=== PATIENT | female | born 1945 | race Caucasian/White ===

== ENCOUNTER → 2017-02-27 | Day surgery (SDC) | payer OTHER ==
[2017-02-06 11:23] VITALS: BMI 19.0
--- NOTE | 2017-02-06 11:57 | PAT Medication Instructions ---
Service Date February 06, 2017. Current Home Medication List Albuterol (Ventolin), 2 PUFFS INH QID PRN for SOB/Wheezing Citalopram Hydrobromide (Celexa), 20 MG PO QAM Oxycodone/Acetaminophen 5MG/325MG (Percocet 5MG/325MG), 1-2 TABLETS PO Q4-6HR PRN Medication Instructions For Your Scheduled Surgery - Take the following medications the morning of surgery with a sip of water: Albuterol (Ventolin), 2 PUFFS INH QID PRN for SOB/Wheezing (use if needed/ bring with you to hospital on day of surgery) Citalopram Hydrobromide (Celexa), 20 MG PO QAM Oxycodone/Acetaminophen 5MG/325MG (Percocet 5MG/325MG), 1-2 TABLETS PO Q4- 6HR PRN (can take up to four hours prior to surgery on day of surgery if needed) - Take the following medications as scheduled the night before surgery: Albuterol (Ventolin), 2 PUFFS INH QID PRN for SOB/Wheezing Oxycodone/Acetaminophen 5MG/325MG (Percocet 5MG/325MG), 1-2 TABLETS PO Q4- 6HR PRN If you have any questions please call us at [phone] or [phone] ( Sydnie) or [phone]
[2017-02-06 12:40] LABS: URINE APPEARANCE CLEAR (CLEAR); URINE BILIRUBIN NEG (NEG); URINE COLOR YELLOW; URINE NITRITE NEG (NEG); URINE SPECIFIC GRAVITY 1.011 (1.000-1.030); UROBILINOGEN NEG (NEG)
[2017-02-06 12:41] LABS: BASO % 0.5 %; BASO ABS # 0.03 K/uL (0-0.2); COMPLETE YES; EOS % 1.6 %; HEMATOCRIT 43.7 % (37-47); IG% 0.2 %; LYMPH % 21.5 %; MEAN CELL VOLUME 94.2 fL (80-100); MEAN CORPUSCULAR HEMOGLOBIN 31.5 pg (25-34); MEAN CORPUSCULAR HGB CONC 33.4 g/dl (32-36); MEAN PLATELET VOLUME 10.8 fL (7.4-10.4); NEUT % 69.2 %; PLATELET COUNT 199 K/uL (130-400); RED BLOOD COUNT 4.64 M/uL (4.2-5.4); WHITE BLOOD COUNT 5.58 K/uL (4.8-10.8)
[2017-02-06 12:46] LABS: MANUAL MICROSCOPIC REQUIRED? NO; REVIEW REQ? NO
[2017-02-06 13:38] LABS: BUN/CREATININE RATIO 19.9 (10-20); CALCIUM 9.6 mg/dl (8.5-10.1); CREATININE 0.7 mg/dl (0.60-1.20); POTASSIUM 4.3 mmol/L (3.5-5.1)
--- NOTE | 2017-02-14 14:00 | History and Physical ---
History & Physical Date of Service February 14, 2017. History & Physical Plan of care discussed with Dr. Baker CHIEF COMPLAINT: Chronic intractable lower extremity neuropathic pain HISTORY OF PRESENT ILLNESS: Ms. Guillen is a 71-year-old white female who is well known to the [facility] with a history of chronic bilateral lower extremity neuropathic pain which has required implantation of intrathecal pump and catheter delivery system. The intrathecal pump was implanted by Dr. Baker in 2010 which has provided adequate pain control with the current intrathecal infusion rate. Her pain will range from a 1-6/10. Neuropathic pain in the legs has been well controlled with the Clonidine dosing. She has no new neurologic complaints and has no further constitutional complaints at today's visit. Patient continues to use spinal cord stimulator with moderate relief of neuropathic pain. She denies any constitutional complaints, neurological symptoms, bowel/bladder incontinence, or leg weakness. PAST MEDICAL HISTORY: 1. Dyslipidemia 2. Osteoarthritis 3. History of urethral cancer with chemotherapy and radiation 1990 4. COPD PAST SURGICAL HISTORY: 1. Partial hysterectomy 2. Multiple left leg surgeries 3. Left wrist ORIF 4. Implantation of intrathecal pump and catheter delivery system 5. Implantation of spinal cord stimulator 2003 with battery replacement in 2010 and 2013 SOCIAL HISTORY: Patient is retired and living with her . She smokes one pack per day 59 years. Occasional alcohol consumption. She denies any illicit substance abuse. ALLERGIES: Adhesives, Bactrim MEDICATIONS: 1. Albuterol inhaler 2 puffs every 6 hours as needed 2. Citalopram 20 mg daily REVIEW OF SYSTEMS: Denies any constitutional, cardiac, pulmonary, neurological, GI, , extremity, endocrine, neuro, ENT, dermatological, or musculoskeletal complaints other than stated in HPI PHYSICAL EXAMINATION: VITAL SIGNS: Per admission GENERAL: This is a 71-year-old white female that has been and frail appearing. Speech and cognition is intact. Mood and affect is appropriate. She does not appear to be in any acute distress. HEAD: Normocephalic; atraumatic. EYES: Pupils are round, equal, and reactive to light; EOM intact. ENT: No external ear discharge or lesions. No rhinorrhea or epistaxis. No mucosal lesions. NECK: Full ROM; trachea is midline; no TTP; no cervical lymphadenopathy. PULM: Clear to auscultation. No wheezes, rales, or rhonchi. CHEST: Regular chest respiration and excursion. ABDOMEN: Active bowel sounds throughout; non-tender to palpation. Intrathecal pump located in the right lower quadrant and spinal cord stimulator located in the left lower quadrant. EXTREMITIES: 5/5 strength of the bilateral lower extremities. No allodynia, hyperpathia. There are scattered dysesthesias of the lower extremities. BACK: Well healed surgical incision of the thoracolumbar region. No midline or facet tenderness. . No SI joint tenderness. No muscle spasm noted. NEURO: CN II-XII grossly intact with no focal deficits noted. AAO x 3. SKIN: No lesions, erythema, or rashes noted. ASSESSMENT: Chronic intractable lower extremity neuropathic pain TREATMENT: Patient reports adequate pain control of the bilateral lower extremities with the use of the intrathecal pump and catheter delivery system as well at the spinal cord stimulator. The MARIO of the intrathecal pump is at 6 months so it is recommended that the pump be replaced. Risks and benefits were reviewed with the patient. Procedure was explained and she would like to proceed with the pump replacement. She is scheduled for the procedure on .
[~2017-02-27] VITALS: Ht 162.6 cm; Wt 51.0 kg
[~2017-02-27] MED LIST: ALBUAER2 INH; ATROPINE SULFATE 0.1 MG/ML 5ML SYR IV PRN; BACITRACIN 50000 UNIT VIAL ONE; BUPIVACAINE/EPINEPHRINE 0.25% 1:200,000 30 ML VIAL ONE; CEFAZOLIN 2000 MG/60 ML D5W 50 ML IV SCH; CITA10TA8 PO; DEXAMETHASONE SOD INJ 4 MG/ML VIAL ONE; EpHEDrine SULFATE INJ 50 MG/ML AMP ONE; FENTANYL CITRATE INJ 50 MCG/1 ML 2 ML VIAL IV PRN; FENTANYL CITRATE INJ 50 MCG/1 ML 2 ML VIAL ONE; HYDR-5688 PO; LACTATED RINGER'S 1000ML 1,000 ML IV SCH; LIDOCAINE HCL 2% 2 ML VIAL (20MG/ML) ONE; MIDAZOLAM HCL 1 MG/ML 2ML VIAL ONE; NEOMYCIN/POLYMYX/BACITR OINT 15 GM TUBE ONE; ONDANSETRON INJ 2 MG/ML 2 ML VIAL IV PRN; ONDANSETRON INJ 2 MG/ML 2 ML VIAL ONE; OXYC-57 PO; PHENYLEPHRINE 100MCG/ML 5ML SYR ONE; PROPOFOL IV EMULSION 10 MG/ML 20 ML VIAL IV ONE
[2017-02-27 12:48] VITALS: PULSE 77; TEMP 36.7; O2SAT 97; Ht 162.6 cm; Wt 51.0 kg
--- NOTE | 2017-02-27 14:12 | History & Physical Bridge Note ---
H&P Re-Evaluation Bridge Note: I have examined the patient, reviewed the History & Physical and in the interval since the performance of the History & Physical I have noted the following changes of clinical significance: No changes noted
--- NOTE | 2017-02-27 15:29 | Discharge Instructions ---
Discharge Instructions Date of Service Feb 27, 2017. Visit Reason for Visit: End-Of-Life Intrathecal Drug Administration System Discharge Discharge Diagnosis / Problem: Intrathecal pump replacement Discharge Goals Goal(s): Increase independence Activity Recommendations Activity Recommendations: no repetitive bending, no repetitive twists, no showers for 3 days Lifting Limitations: no more than 10 pounds Shower/Bathe: may shower/bathe in 3 days Anesthesia . Post Anesthesia Instructions: If you have had General Anesthesia or IV Sedation: * Do not drive today. * Resume driving when surgeon permits. * Do not make important decisions or sign legal documents today. * Call surgeon for: * Temperature elevations greater than 101 degrees F. * Uncontrollable pain. * Excessive bleeding. * Persistent nausea and vomiting. * Medication intolerance (nausea, vomiting or rash). * For nausea and vomiting use only clear liquids such as: tea, soda, bouillon until nausea subsides, then gradually increase diet as tolerated. * If you have any concerns or questions, call your surgeon's office. If physician is unavailable and it is an emergency, call 911 or go to the nearest emergency room. . Instructions Instructions / Follow-Up . * Change dressings daily. Apply sterile dry gauze. * Call [facility] [phone] or go to the nearest emergency room if he experience high fevers, new back pain, new neurological symptoms such as numbness or weakness in the lower extremity or new bowel bladder incontinence. Also of call if he experience a headache that is positional. * Wear abdominal binder. * No showers for 3 days. * Resume normal activity. No repetitive bending, twisting or reaching overhead for 2 weeks. Do not lift more than 5 pounds for 2 weeks. . Follow-Up Follow-Up: 1 week in office for wound check Diet Recommendations Home Diet: no limitations Procedures Procedures Performed: Replacement of Intrathecal Drug Administration Pain Pump Pending Studies Studies pending at discharge: no Medical Emergencies . Who to Call and When: Medical Emergencies: If at any time you feel your situation is an emergency, please call 911 immediately. . Non-Emergent Contact Non-Emergency issues call your: Pain Management provider Call Non-Emergent contact if: temperature is above 101.5, your pain is not controlled, your pain is worsening, your pain is unusual for you, your pain is concerning you, wound has increased drainage, wound has increased redness . . "Provider Documentation" section prepared by Shilpa Aquino. .
--- NOTE | 2017-02-27 15:33 | [facility] Operative Report ---
Operative Report Operative Date Feb 27, 2017. Pre-Operative Diagnosis End of life intrathecal pain pump Post-Operative Diagnosis Same Procedure(s) Performed Replacement of intrathecal pump Surgeon Dr. Aime Geronimo Build Technician Surgeon(s) Shilpa Aquino PA-c Estimated Blood Loss 10 ml Findings See below Specimens A: Explanted pain pump Drains None Anesthesia General LMA Complication(s) None Disposition Recovery Room / PACU Description of Procedure INTRATHECAL PUMP REPLACEMENT PROCEDURE PERFORMED: Intrathecal pump replacement PREOPERATIVE DIAGNOSIS: End of life intrathecal pump POSTOPERATIVE DIAGNOSIS: Same. COMPLICATIONS: None. SURGEON: Dr. Kenn Baker. ANESTHESIA: General/LMA. MATERIAL FORWARDED TO THE LAB: Explanted pump. EBL: 5 ml IMPLANTED PUMP SIZE: 40 mL. MEDICATIONS PLACED IN THE PUMP: Morphine 10 mg/ml and Clonidine 100 mcg/ml INDICATIONS: The patient had an end of life pump with less than 1 month prior to system failure, thus requiring replacement. The patient was explained the risks, benefits, alternatives of the procedure and agreed to proceed as above. Informed consent was obtained and witnessed. A time out was performed after the patient was brought into the Operating Room. Antibiotics were given. The patient was then induced with general anesthesia without complications and was placed in the supine. The skin was prepped with duraprep and betadiene and draped in sterile fashion. The existing pump was identified and using a scalpel , electro cautery, and blunt dissection, the existing pump was exposed. The four retaining sutures were removed and the old pump was explanted. The catheter was disconnected from the old pump and free flowing CSF was noted. The new pump was opened and prepared according to [employer] standards and was filled with 40 mL of new medication of same type and concentration. The pump catheter was secured to the new pump and secured. The catheter access port was accessed and revealed free flowing CSF. Next, the pocket was irrigated with sterile normal saline with bacitracin. Hemostasis was checked. The new pump was placed into the pocket in the 12 O'clock position. The intrathecal pump was anchored in the pocket with 4-0 Prolene sutures. Both wounds were irrigated with bacitracin-containing normal saline. Both wounds were closed in similar fashion using continuous 0 V lock suture for deeper layer and running 3-0 V lock suture for subcuticular layer. Prineo to the skin. 4 x 4 gauze and pressure dressing was applied to both sites. Abdominal binder was placed. At the conclusion of the procedure, the pump was re-interrogated and reprogrammed to deliver morphine 1.399 and clonidine 13.99 mcg per day. The patient was allowed to emerge from general anesthesia and transported to the recovery room in stable condition uneventfully. The patient will follow up at [facility] pain clinic within 7 days for a wound check and then plan to have the gwen removed at day 14. I attest to the content of the Intraoperative Record and any orders documented therein. Any exceptions are noted below.
--- NOTE | 2017-02-27 15:59 | Anesthesiology Progress Note ---
Anesthesia Post Op Note Date & Time Feb 27, 2017 at 15:59 Vital Signs Pain Intensity: 3 Vital Signs Past 12 Hours Date Time Temp Pulse Resp B/P (MAP) Pulse Ox O2 Delivery O2 Flow Rate FiO2 02/27/17 15:45 81 16 116/76 98 Mask 10 02/27/17 15:35 37.4 79 16 152/74 100 Mask 10 02/27/17 12:48 36.7 77 16 97 Room Air Notes Mental Status: alert / awake / arousable, participated in evaluation Pt Amnestic to Procedure: Yes Nausea / Vomiting: adequately controlled Pain: adequately controlled Airway Patency, RR, SpO2: stable & adequate BP & HR: stable & adequate Hydration State: stable & adequate Anesthetic Complications: no major complications apparent
[2017-02-27 16:15] VITALS: BP 125/63; PULSE 77; TEMP 36.4; O2SAT 91
[2017-02-27 16:45] VITALS: BP 120/64; PULSE 77; O2SAT 93
[2017-02-27 17:15] VITALS: BP 120/64; PULSE 82; TEMP 36.4; O2SAT 94
== END | disposition home or self-care (01) ==
LOC: C.ACU 12:08
PROVIDERS: ATTEND Anesthesiology
DX: Z46.2 Encounter for fitting and adjustment of other devices related to nervous system and special senses (principal); G89.29 Other chronic pain; G57.93 Unspecified mononeuropathy of bilateral lower limbs; J44.9 Chronic obstructive pulmonary disease, unspecified; E78.5 Hyperlipidemia, unspecified; M19.90 Unspecified osteoarthritis, unspecified site; Z85.54 Personal history of malignant neoplasm of ureter; Z90.711 Acquired absence of uterus with remaining cervical stump; Z98.890 Other specified postprocedural states; Z88.1 Allergy status to other antibiotic agents

== ENCOUNTER → 2017-03-06 | Outpatient (CLI) | payer OTHER ==
[~2017-03-06] MED LIST changes: -ATROPINE SULFATE 0.1 MG/ML 5ML SYR IV PRN; -BACITRACIN 50000 UNIT VIAL ONE; -BUPIVACAINE/EPINEPHRINE 0.25% 1:200,000 30 ML VIAL ONE; -CEFAZOLIN 2000 MG/60 ML D5W 50 ML IV SCH; -DEXAMETHASONE SOD INJ 4 MG/ML VIAL ONE; -EpHEDrine SULFATE INJ 50 MG/ML AMP ONE; -FENTANYL CITRATE INJ 50 MCG/1 ML 2 ML VIAL IV PRN; -FENTANYL CITRATE INJ 50 MCG/1 ML 2 ML VIAL ONE; -LACTATED RINGER'S 1000ML 1,000 ML IV SCH; -LIDOCAINE HCL 2% 2 ML VIAL (20MG/ML) ONE; -MIDAZOLAM HCL 1 MG/ML 2ML VIAL ONE; -NEOMYCIN/POLYMYX/BACITR OINT 15 GM TUBE ONE; -ONDANSETRON INJ 2 MG/ML 2 ML VIAL IV PRN; -ONDANSETRON INJ 2 MG/ML 2 ML VIAL ONE; -PHENYLEPHRINE 100MCG/ML 5ML SYR ONE; -PROPOFOL IV EMULSION 10 MG/ML 20 ML VIAL IV ONE
--- NOTE | 2017-03-06 12:02 | DIAGNOSTIC IMAGING REPORT ---
LEFT HUMERUS MIN 2 VIEWS ROUTINE CLINICAL HISTORY: Left arm pain status post fall. COMPARISON: None FINDINGS: No acute fracture of the left humerus is identified. Alignment of the left acromioclavicular and glenohumeral joints appears anatomic. There is mild to moderate AC joint arthrosis. IMPRESSION: No acute fracture of the left humerus. Electronically signed by: Laz Ledesma M.D. 03/06/2017 12:00 PM Dictated Date/Time: 03/06/2017 11:59 AM
== END | disposition home or self-care (01) ==
LOC: C.RADBC 11:18
PROVIDERS: ATTEND Physician Assistant
DX: M79.632 Pain in left forearm (principal)

== ENCOUNTER → 2017-08-14 | Outpatient (CLI) | payer OTHER ==
[~2017-08-14] MED LIST changes: -OXYC-57 PO
--- NOTE | 2017-08-14 12:49 | DIAGNOSTIC IMAGING REPORT ---
THORACOLUMBAR SPINE 2 VIEWS CLINICAL HISTORY: BACK PAIN COMPARISON STUDY: 01/20/2014 FINDINGS: There is a thoracolumbar scoliosis. No acute fractures or subluxations are visualized. There are multilevel degenerative changes. There is an intrathecal pain pump, and spinal stimulator. There is discontinuity of the intrathecal pain pump tubing. IMPRESSION: 1. Thoracolumbar scoliosis 2. Multilevel degenerative change 3. No change in the position of the spinal stimulator 4. Intrathecal pain pump. There is again evidence for discontinuity of the pump tubing. Electronically signed by: Farooq Bautista M.D. 08/14/2017 12:48 PM Dictated Date/Time: 08/14/2017 12:45 PM
== END | disposition home or self-care (01) ==
LOC: C.RADBC 12:13
PROVIDERS: ATTEND Physician Assistant Medical
DX: M54.5 Low back pain (principal)

== ENCOUNTER 2017-11-30 12:32 | Emergency (ER) | payer OTHER ==
[~2017-11-30] VITALS: Ht 165.1 cm; Wt 49.1 kg
[2017-11-30 12:42] VITALS: TEMP 36.6; Ht 165.1 cm; Wt 49.1 kg
[2017-11-30 13:40] LABS: BASO % 0.9 %; BASO ABS # 0.05 K/uL (0-0.2); EOS % 2.2 %; EOS ABS # 0.12 K/uL (0-0.5); HEMATOCRIT 44.1 % (37-47); HEMOGLOBIN 14.8 g/dL (12.0-16.0); IG# 0.01 K/uL (0.00-0.02); LYMPH % 16.7 %; LYMPH ABS # 0.91 K/uL (1.2-3.4); MEAN CELL VOLUME 92.5 fL (80-100); MEAN CORPUSCULAR HGB CONC 33.6 g/dl (32-36); MEAN PLATELET VOLUME 11.2 fL (7.4-10.4); MONO % 8.6 %; MONO ABS # 0.47 K/uL (0.11-0.59); NEUT % 71.4 %; PLATELET COUNT 193 K/uL (130-400); RED CELL DISTRIBUTION WIDTH CV 13.4 % (11.5-14.5); RED CELL DISTRIBUTION WIDTH SD 45.6 fL (36.4-46.3); WHITE BLOOD COUNT 5.46 K/uL (4.8-10.8)
[2017-11-30 13:56] LABS: ALBUMIN 4.2 gm/dl (3.4-5.0); CALCIUM 9.8 mg/dl (8.5-10.1); CREATININE 0.7 mg/dl (0.60-1.20); POTASSIUM 4.1 mmol/L (3.5-5.1)
[2017-11-30 13:59] LABS: TOTAL PROTEIN 7.6 gm/dl (6.4-8.2)
[2017-11-30] MEDS ORDERED: VNTHFA/IN INH (14:08)
--- NOTE | 2017-11-30 14:09 | DIAGNOSTIC IMAGING REPORT ---
PA CHEST WITH ABDOMINAL SERIES CLINICAL HISTORY: Generalized abdominal pain. FINDINGS: A PA chest radiograph is compared to study dated 03/25/2014. Examination is degraded by patient rotation. The heart is top normal for projection. There is atherosclerotic calcification of the thoracic aorta. Emphysema is suspected. There is chronic interstitial thickening. No airspace consolidation or pleural effusion is identified. No pneumothorax is seen. The skeletal structures are osteopenic. There are healed right-sided rib fractures. Supine and erect abdominal radiographs are correlated with abdominal CT dated 03/25/2014. There is a nonobstructed abdominal bowel gas pattern. No evidence of intraperitoneal free air is seen. There are no abnormal abdominal calcifications. The lumbosacral spine and bony pelvis appear intact. Electronic devices project over the mid abdomen bilaterally. A pain pump catheter projects over the upper lumbar region. Intrathecal leads project over the lower thoracic spine. The pain pump catheter appears fractured at the level of L3. There is also likely a fractured lead from the neurostimulator device. IMPRESSION: 1. Emphysema with no acute cardiopulmonary abnormality. 2. Nonobstructed abdominal bowel gas pattern. 3. Neurostimulator and pain pump catheter devices are in place. An electronic leads as well as the pain pump catheter appear fractured. Follow-up with the patient's pain management physician is recommended. Electronically signed by: Femi Mccollum M.D. 11/30/2017 2:08 PM Dictated Date/Time: 11/30/2017 2:00 PM
--- NOTE | 2017-11-30 14:26 | EMERGENCY ROOM VISIT NOTE ---
ED Visit Note First contact with patient: 13:01 I have seen and examined this patient with Isa Singh and generally agree with the treatment plan as discussed. Problem List Medical Problems: (1) Hyperlipidemia Status: Chronic (2) Osteoarthritis Status: Chronic (3) Urethral cancer Status: Chronic Surgical Problems: (1) History of hysterectomy Status: Resolved (2) Left wrist ORIF Status: Resolved (3) Multiple leg surgeries Status: Resolved (4) Spinal cord stimulator Status: Chronic Current/Historical Medications Scheduled Citalopram Hydrobromide (Celexa), 20 MG PO QAM Scheduled PRN Albuterol Hfa (Ventolin Hfa), 2-4 PUFFS INH Q6H PRN for SOB/Wheezing Hydrocodone/Acetaminophen 5MG/325MG (Strawn 5MG/325MG), 1 TAB PO TID PRN for Pain Allergies Coded Allergies: Adhesives (Verified Allergy, Intermediate, BLISTERS, 11/30/17) Sulfamethoxazole w/Trimethoprim (Unverified Allergy, Unknown, per records , 11/30/17) Vital Signs Date Time Temp Pulse Resp B/P (MAP) Pulse Ox O2 Delivery O2 Flow Rate FiO2 11/30/17 12:42 36.6 101 17 139/105 97 Room Air Laboratory Results 11/30/17 13:28 Red Blood Count 4.77, Mean Corpuscular Volume 92.5, Mean Corpuscular Hemoglobin 31.0, Mean Corpuscular Hemoglobin Concent 33.6, Mean Platelet Volume 11.2, Neutrophils (%) (Auto) 71.4, Lymphocytes (%) (Auto) 16.7, Monocytes (%) (Auto) 8.6, Eosinophils (%) (Auto) 2.2, Basophils (%) (Auto) 0.9, Neutrophils # (Auto) 3.90, Lymphocytes # (Auto) 0.91, Monocytes # (Auto) 0.47, Eosinophils # (Auto) 0.12, Basophils # (Auto) 0.05 11/30/17 13:28 Test 11/30/17 13:28 White Blood Count 5.46 K/uL (4.8-10.8) Red Blood Count 4.77 M/uL (4.2-5.4) Hemoglobin 14.8 g/dL (12.0-16.0) Hematocrit 44.1 % (37-47) Mean Corpuscular Volume 92.5 fL (80-100) Mean Corpuscular Hemoglobin 31.0 pg (25-34) Mean Corpuscular Hemoglobin Concent 33.6 g/dl (32-36) Platelet Count 193 K/uL (130-400) Mean Platelet Volume 11.2 fL (7.4-10.4) Neutrophils (%) (Auto) 71.4 % Lymphocytes (%) (Auto) 16.7 % Monocytes (%) (Auto) 8.6 % Eosinophils (%) (Auto) 2.2 % Basophils (%) (Auto) 0.9 % Neutrophils # (Auto) 3.90 K/uL (1.4-6.5) Lymphocytes # (Auto) 0.91 K/uL (1.2-3.4) Monocytes # (Auto) 0.47 K/uL (0.11-0.59) Eosinophils # (Auto) 0.12 K/uL (0-0.5) Basophils # (Auto) 0.05 K/uL (0-0.2) RDW Standard Deviation 45.6 fL (36.4-46.3) RDW Coefficient of Variation 13.4 % (11.5-14.5) Immature Granulocyte % (Auto) 0.2 % Immature Granulocyte # (Auto) 0.01 K/uL (0.00-0.02) Anion Gap 5.0 mmol/L (3-11) Est Creatinine Clear Calc Drug Dose 54.7 ml/min Estimated GFR () 98.9 Estimated GFR (Non- 85.4 BUN/Creatinine Ratio 18.5 (10-20) Calcium Level 9.8 mg/dl (8.5-10.1) Total Bilirubin 0.4 mg/dl (0.2-1) Direct Bilirubin 0.1 mg/dl (0-0.2) Aspartate Amino Transf (AST/SGOT) 22 U/L (15-37) Alanine Aminotransferase (ALT/SGPT) 19 U/L (12-78) Alkaline Phosphatase 72 U/L (45-117) Total Protein 7.6 gm/dl (6.4-8.2) Albumin 4.2 gm/dl (3.4-5.0) Lipase 184 U/L (73-393) Departure Information Referrals Mahesh Magallon M.D. (PCP) Patient Instructions My [facility]
--- NOTE | 2017-11-30 14:31 | EMERGENCY ROOM VISIT NOTE ---
History First contact with patient: 13:01 Chief Complaint: CONSTIPATION Stated Complaint: BOWEL,BLOCKAGE Nursing Triage Summary: Had XRAYS on sunday and was told she had a bowel blockage. "They just got the XRAYs this AM." Has occasional "bellyache". Denies N/V. Does report intermittent diarrhea. History of Present Illness The patient is a 72 year old female who presents to the Emergency Room with complaints that she was told she has a bowel blockage this morning and was told to come to the emergency room. The patient states that she has been having some intermittent abdominal cramping and saw her PCP on Sunday when they did x- rays. They called her this morning and told her that she has a bowel obstruction and to come to the emergency room. The patient states that she has had ongoing diarrhea for many years. 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 The patient denies any nausea vomiting or fever. The patient states that she feels "gassy". The patient denies any urinary symptoms of frequency, urgency, dysuria or hematuria. Review of Systems 10 system review was performed and was negative unless stated otherwise history of present illness. Past Medical/Surgical History Medical Problems: (1) Hyperlipidemia (2) Osteoarthritis (3) Urethral cancer Surgical Problems: (1) History of hysterectomy (2) Left wrist ORIF (3) Multiple leg surgeries (4) Spinal cord stimulator Social History Smoking Status: Current Every Day Smoker Marital Status: Occupation Status: retired Current/Historical Medications Scheduled Citalopram Hydrobromide (Celexa), 20 MG PO QAM Scheduled PRN Albuterol Hfa (Ventolin Hfa), 2-4 PUFFS INH Q6H PRN for SOB/Wheezing Hydrocodone/Acetaminophen 5MG/325MG ([place] 5MG/325MG), 1 TAB PO TID PRN for Pain Physical Exam Vital Signs Date Time Temp Pulse Resp B/P (MAP) Pulse Ox O2 Delivery O2 Flow Rate FiO2 11/30/17 12:42 36.6 101 17 139/105 97 Room Air Physical Exam GENERAL: 72-year-old white female appears in no acute distress. MENTAL Status: Alert and oriented 3. MOUTH: Mucosa is moist NECK: Supple, no lymphadenopathy noted. No carotid bruits noted. LUNGS: Clear auscultation without wheezes rales or rhonchi. CARDIAC: Regular rate and rhythm without murmur. Pulses is full and equal throughout. BACK: No CVA tenderness noted. ABDOMEN: Positive bowel sounds all 4 quadrants. Soft, nontender to palpation without organomegaly or masses. EXTREMITIES: No cyanosis or edema noted. Medical Decision & Procedures ER Provider Diagnostic Interpretation: PA CHEST WITH ABDOMINAL SERIES CLINICAL HISTORY: Generalized abdominal pain. FINDINGS: A PA chest radiograph is compared to study dated 03/25/2014. Examination is degraded by patient rotation. The heart is top normal for projection. There is atherosclerotic calcification of the thoracic aorta. Emphysema is suspected. There is chronic interstitial thickening. No airspace consolidation or pleural effusion is identified. No pneumothorax is seen. The skeletal structures are osteopenic. There are healed right-sided rib fractures. Supine and erect abdominal radiographs are correlated with abdominal CT dated 03/25/2014. There is a nonobstructed abdominal bowel gas pattern. No evidence of intraperitoneal free air is seen. There are no abnormal abdominal calcifications. The lumbosacral spine and bony pelvis appear intact. Electronic devices project over the mid abdomen bilaterally. A pain pump catheter projects over the upper lumbar region. Intrathecal leads project over the lower thoracic spine. The pain pump catheter appears fractured at the level of L3. There is also likely a fractured lead from the neurostimulator device. IMPRESSION: 1. Emphysema with no acute cardiopulmonary abnormality. 2. Nonobstructed abdominal bowel gas pattern. 3. Neurostimulator and pain pump catheter devices are in place. An electronic leads as well as the pain pump catheter appear fractured. Follow-up with the patient's pain management physician is recommended. Electronically signed by: Femi Mccollum M.D. 11/30/2017 2:08 PM Laboratory Results 11/30/17 13:28 Red Blood Count 4.77, Mean Corpuscular Volume 92.5, Mean Corpuscular Hemoglobin 31.0, Mean Corpuscular Hemoglobin Concent 33.6, Mean Platelet Volume 11.2, Neutrophils (%) (Auto) 71.4, Lymphocytes (%) (Auto) 16.7, Monocytes (%) (Auto) 8.6, Eosinophils (%) (Auto) 2.2, Basophils (%) (Auto) 0.9, Neutrophils # (Auto) 3.90, Lymphocytes # (Auto) 0.91, Monocytes # (Auto) 0.47, Eosinophils # (Auto) 0.12, Basophils # (Auto) 0.05 11/30/17 13:28 Test 11/30/17 13:28 White Blood Count 5.46 K/uL (4.8-10.8) Red Blood Count 4.77 M/uL (4.2-5.4) Hemoglobin 14.8 g/dL (12.0-16.0) Hematocrit 44.1 % (37-47) Mean Corpuscular Volume 92.5 fL (80-100) Mean Corpuscular Hemoglobin 31.0 pg (25-34) Mean Corpuscular Hemoglobin Concent 33.6 g/dl (32-36) Platelet Count 193 K/uL (130-400) Mean Platelet Volume 11.2 fL (7.4-10.4) Neutrophils (%) (Auto) 71.4 % Lymphocytes (%) (Auto) 16.7 % Monocytes (%) (Auto) 8.6 % Eosinophils (%) (Auto) 2.2 % Basophils (%) (Auto) 0.9 % Neutrophils # (Auto) 3.90 K/uL (1.4-6.5) Lymphocytes # (Auto) 0.91 K/uL (1.2-3.4) Monocytes # (Auto) 0.47 K/uL (0.11-0.59) Eosinophils # (Auto) 0.12 K/uL (0-0.5) Basophils # (Auto) 0.05 K/uL (0-0.2) RDW Standard Deviation 45.6 fL (36.4-46.3) RDW Coefficient of Variation 13.4 % (11.5-14.5) Immature Granulocyte % (Auto) 0.2 % Immature Granulocyte # (Auto) 0.01 K/uL (0.00-0.02) Anion Gap 5.0 mmol/L (3-11) Est Creatinine Clear Calc Drug Dose 54.7 ml/min Estimated GFR () 98.9 Estimated GFR (Non- 85.4 BUN/Creatinine Ratio 18.5 (10-20) Calcium Level 9.8 mg/dl (8.5-10.1) Total Bilirubin 0.4 mg/dl (0.2-1) Direct Bilirubin 0.1 mg/dl (0-0.2) Aspartate Amino Transf (AST/SGOT) 22 U/L (15-37) Alanine Aminotransferase (ALT/SGPT) 19 U/L (12-78) Alkaline Phosphatase 72 U/L (45-117) Total Protein 7.6 gm/dl (6.4-8.2) Albumin 4.2 gm/dl (3.4-5.0) Lipase 184 U/L (73-393) ED Course The patient was evaluated. I reviewed the patient's x-ray report from [facility] dated 11/26/2017. It revealed a possible ileus versus partial small bowel obstruction. The patient did not appear in any severe distress. A repeat x-ray was ordered and interpreted by the radiologist as above without any evidence of obstruction. CBC differential, renal profile, LFTs and lipase levels were ordered. Labs are reviewed and were unremarkable. The patient was informed of all findings. The patient was independently evaluated by Dr. Hutchinson who agrees with treatment plan. The patient was discharged home in stable condition. Medical Decision Differential diagnosis include ileus, partial bowel obstruction, small bowel obstruction, constipation, fecal impaction [place] Drug Monitoring Program Search Results: patient reviewed within database Medication Reconcilliation Current Medication List: was personally reviewed by me Blood Pressure Screening Patient's blood pressure: Elevated blood pressure Blood pressure disposition: Elevated BP felt to be situational Impression Primary Impression: Abdominal pain Departure Information Dispostion Home / Self-Care Condition GOOD Referrals Mahesh Magallon M.D. (PCP) Forms HOME CARE DOCUMENTATION FORM, IMPORTANT VISIT INFORMATION Patient Instructions My [facility] Additional Instructions Recommend [id number] treatment for gas pains such as Gas-X or Beano. If symptoms persist or worsen, follow-up with your family doctor or return to ER. Continue all other medications as prescribed. Problem Qualifiers Primary Impression: Abdominal pain Abdominal location: lower abdomen, unspecified Qualified Codes: R10.30 - Lower abdominal pain, unspecified
[2017-11-30 14:50] VITALS: BP 121/62; PULSE 82; O2SAT 97
== END 2017-11-30 15:19 | disposition home or self-care (01) ==
LOC: C.EDB 12:33 → C.EDC 15:19
DX: R10.30 Lower abdominal pain, unspecified (principal); E78.5 Hyperlipidemia, unspecified; M19.90 Unspecified osteoarthritis, unspecified site; Z85.59 Personal history of malignant neoplasm of other urinary tract organ; F17.210 Nicotine dependence, cigarettes, uncomplicated; Z79.899 Other long term (current) drug therapy

== ENCOUNTER 2018-01-29 10:49 | Observation (INO) | payer OTHER ==
[2018-01-10 11:58] VITALS: BMI 17.0
[2018-01-10 13:05] LABS: BASO % 0.6 %; BASO ABS # 0.03 K/uL (0-0.2); EOS % 2.1 %; EOS ABS # 0.11 K/uL (0-0.5); HEMATOCRIT 42.7 % (37-47); IG# 0.01 K/uL (0.00-0.02); LYMPH % 21.3 %; LYMPH ABS # 1.11 K/uL (1.2-3.4); MEAN CELL VOLUME 93.2 fL (80-100); MEAN CORPUSCULAR HEMOGLOBIN 30.6 pg (25-34); MEAN CORPUSCULAR HGB CONC 32.8 g/dl (32-36); MEAN PLATELET VOLUME 10.7 fL (7.4-10.4); MONO % 6.7 %; MONO ABS # 0.35 K/uL (0.11-0.59); NEUT % 69.1 %; NEUT ABS # 3.61 K/uL (1.4-6.5); PLATELET COUNT 206 K/uL (130-400); RED CELL DISTRIBUTION WIDTH CV 13.8 % (11.5-14.5); RED CELL DISTRIBUTION WIDTH SD 46.8 fL (36.4-46.3); WHITE BLOOD COUNT 5.22 K/uL (4.8-10.8)
[~2018-01-29] VITALS: Ht 160 cm; Wt 49.0 kg
[~2018-01-29 10:49] MED LIST changes: -ALBUAER2 INH; +CEFAZOLIN 2000 MG/60 ML D5W 50 ML IV SCH; +CEFAZOLIN 2000MG IV PUSH 15 ML IV SCH; -CITA10TA8 PO; -HYDR-5688 PO; +LACT10CA3 PO; +LACTATED RINGER'S 1000ML 1,000 ML IV SCH; +OXYC-57 PO; +POVIDONE-IODINE OP SOLN 30 ML BTL TOP SCH; +VNTHFA/IN INH
[2018-01-29 11:17] VITALS: BP 117/79; PULSE 68; TEMP 36.7; O2SAT 98; BMI 17.0
--- NOTE | 2018-01-29 12:24 | History & Physical Bridge Note ---
H&P Re-Evaluation Bridge Note: History reviewed, examination performed, pertinent laboratory and imaging studies reviewed. No contraindications noted to proceeding with the proposed procedure. Potential risks including infection, nerve injury, bleeding, hematoma or seroma formation, additional surgical procedures to address these complications, as well as failure to achieve complete relief of preoperative symptoms after the procedure were discussed with the patient. Risks associated with anesthesia required to perform this procedure were reviewed. Alternatives to this procedure were discussed with the patient. Patient's questions were answered. Patient gave informed consent. I have examined the patient, reviewed the History & Physical and in the interval since the performance of the History & Physical I have noted the following changes of clinical significance: No changes noted
[2018-01-29] MEDS ORDERED: LIDO 2%/EPINEPHRINE 1:100000 20 ML VIAL ONE (12:59)
[2018-01-29] MEDS ORDERED: EpHEDrine SULFATE INJ 50 MG/ML AMP IV PRN (13:15)
[2018-01-29] MEDS ORDERED: ONDANSETRON INJ 2 MG/ML 2 ML VIAL IV PRN (13:15)
[2018-01-29] MEDS ORDERED: FENTANYL CITRATE INJ 50 MCG/1 ML 2 ML VIAL IV PRN (13:15)
[2018-01-29] MEDS ORDERED: ATROPINE SULFATE 0.1 MG/ML 5ML SYR IV PRN (13:15)
[2018-01-29] MEDS ORDERED: MIDAZOLAM HCL 1 MG/ML 2ML VIAL ONE (13:25)
[2018-01-29] MEDS ORDERED: FENTANYL CITRATE INJ 50 MCG/1 ML 2 ML VIAL ONE ×2 (13:26→15:41)
[2018-01-29] MEDS ORDERED: PROPOFOL IV EMULSION 10 MG/ML 20 ML VIAL ONE (14:44)
[2018-01-29] MEDS ORDERED: ROCURONIUM BROMIDE 10 MG/ML 5 ML VIAL ONE (14:44)
[2018-01-29] MEDS ORDERED: DEXAMETHASONE SOD INJ 4 MG/ML VIAL ONE (14:44)
[2018-01-29] MEDS ORDERED: LIDOCAINE HCL 2% 2 ML VIAL (20MG/ML) ONE (14:44)
[2018-01-29] MEDS ORDERED: GLYCOPYRROLATE INJ 0.2 MG/ML VIAL ONE (15:55)
[2018-01-29] MEDS ORDERED: NEOSTIGMINE METHYLSULFATE 5 MG/5 ML SYR ONE (15:55)
--- NOTE | 2018-01-29 15:55 | [facility] Operative Report ---
Operative Report Operative Date January 29, 2018. Pre-Operative Diagnosis Fractured intrathecal catheter Post-Operative Diagnosis same Procedure(s) Performed Replacement of intrathecal catheter; refill and reprogam Intraoperative catheter dye study. Surgeon Dr. Baker Roll Or Tape Edge Machine Operator Surgeon(s) Dr. Victoria Estimated Blood Loss 5ML Findings Catheter fractured at the interspinous ligament site. Specimens no specimen, per surgeon Anesthesia Type General/Epidural Complication(s) none Disposition Recovery Room / PACU Description of Procedure INTRATHECAL CATHETER REVISION OPERATIVE REPORT PREOPERATIVE DIAGNOSIS: Nonfunctioning and migrated intrathecal catheter. POSTOPERATIVE DIAGNOSIS: Same. PROCEDURE: 1. Remove migrated catheter. 2. Insertion of new catheter. 3. Postoperative reprogramming of intrathecal drug delivery system pump. INDICATIONS: Fracture intrathecal catheter COMPLICATIONS: None ANESTHESIA: General. DESCRIPTION OF PROCEDURE: The patient had an existing intrathecal pump with the catheter that had migrated in the epidural space. Patient was not achieving the efficacy from the intrathecal dose of the hydromorphone. Evaluation limited the catheter to be not in the thecal space. Prior to starting, the Patients diagnosis and the procedure were reviewed with the patient in detail. Possible risks and complications including infection, bleeding, damage to surrounding structures and increased pain were discussed. Alternative therapies were also reviewed. Patients questions were answered and they agreed to proceed. Informed consent was obtained. Allergies and medication list was reviewed. Biplanar fluoroscopy was used to assist in placement of the needle as well as to evaluate the final needle and catheter positions. The patient was brought to the operating room and general anesthesia was induced by members of the department. Patient was then placed in right lateral decubitus position. Immediately prior to starting the procedure, a ``time out was conducted with the staff where the patient was identified, proposed procedure was verified, consent was reviewed and the proper site for the planned procedure was identified. Preoperative antibiotics for prophylaxis were given through the IV. On examination, no signs of skin breakdown or infection were noted at the injection site. The site was cleansed with DuraPrep followed by Betadine. Sterile drapes were applied in the usual fashion. Incision was made at the previous catheter insertion site. The existing catheter was located. It was noted to have been fractured at the interspinous ligament site. Proximal and distal ends were identified and the anchor was disconnected and removed. The catheter access port was identified by using a template and the fluoroscope. A 24-gauge noncoring needle was placed in the catheter access port and contrast was injected. No leak of the contrast is noted and contrast was seen at the exiting site in the lumbar spine wound. Next, using biplanar fluoroscopy an 16- gauge Touhy needle was used to gain access to the intrathecal sac at L2/L3 interspace and catheter was easily threaded through the needle and the tip was placed at T9 interspace. CSF was easily was aspirated. The intrathecal catheter was secured to the dorso-lumbar fascia with 2 purse string 0-0 silk ties. Then the spinal needle was removed and the existing catheter was cut and total of 39 cm segment was removed and discarded. Using a splicing device, the new intrathecal catheter and the existing catheter were connected and secured to the dorsal fascia using 0 silk sutures. Free CSF flow from the intrathecal catheter after anchoring of the catheter to the fascia. Wound was then irrigated with iodophor solution. Hemostasis was achieved. Deep layer was closed using 0 V antibiotic-coated Strratfix suture and running 3-0 V lock suture for subcuticular layer. Prineo to the skin. 4 x 4 gauze and pressure dressing was applied to both sites. Abdominal binder was placed. Pump was then refilled with 39 cc of medication reprogrammed to deliver 0.4 mg of morphine per day. No complications were noted throughout the procedure. The patient tolerated the procedure and general anesthesia without obvious complications.. Patient was allowed to emerge from anesthesia at the end of the procedure and transferred back to the stretcher. Patient was transported to the recovery room in stable condition. The patient will follow up with our clinic within 7 days for a wound check and then plan to have the gwen removed at day 14. Level of catheter: [] Catheter trimmed to: [] cm Medication placed in pump: [] [] mg/ml to run at [] mg/day I attest to the content of the Intraoperative Record and any orders documented therein. Any exceptions are noted below.
[2018-01-29] MEDS ORDERED: ALBUTEROL HFA 8 GM INHALER INH PRN (16:00)
[2018-01-29] MEDS ORDERED: HYDROCODONE/ACETAMIN 5/325MG TAB PO PRN (16:00)
[2018-01-29] MEDS ORDERED: NALOXONE HCL 0.4 MG/1 ML VIAL/CARP IV PRN (16:00)
[2018-01-29] MEDS ORDERED: IV FLUIDS COMPLETED PRN (16:15)
[2018-01-29] MEDS ORDERED: IOPAMIDOL IV ONE (16:26)
--- NOTE | 2018-01-29 17:14 | Anesthesiology Progress Note ---
Anesthesia Post Op Note Date & Time January 29, 2018 at 17:13 Vital Signs Pain Intensity: 0 Vital Signs Past 12 Hours Date Time Temp Pulse Resp B/P (MAP) Pulse Ox O2 Delivery O2 Flow Rate FiO2 01/29/18 17:05 65 16 91/50 93 Nasal Cannula 3 01/29/18 16:55 36.3 68 16 86/40 93 Nasal Cannula 3 01/29/18 16:45 67 16 89/42 93 Nasal Cannula 3 01/29/18 16:35 70 16 90/42 93 Nasal Cannula 3 01/29/18 16:25 77 16 100/60 95 Room Air 01/29/18 16:16 36.1 85 20 127/47 96 Room Air 01/29/18 11:17 36.7 68 16 117/79 (92) 98 Room Air Notes Mental Status: alert / awake / arousable, participated in evaluation Pt Amnestic to Procedure: Yes Nausea / Vomiting: adequately controlled Pain: adequately controlled Airway Patency, RR, SpO2: stable & adequate BP & HR: stable & adequate, see Notes Hydration State: stable & adequate Anesthetic Complications: no major complications apparent Patient's BP systolic in 90's but HR normal and patient sitting upright, conversant and denies any chest pain/pressure/SOB/vision changes/dizziness. She is going to a monitored unit and accepting floor aware to continue to monitor her blood pressure.
[2018-01-29 17:41] VITALS: BP 89/46; PULSE 65; TEMP 36.5; O2SAT 94; Ht 160 cm; Wt 49.0 kg
[2018-01-29 18:40] VITALS: BP 91/49; PULSE 74
[2018-01-29 19:00] VITALS: BP 101/49; PULSE 65; TEMP 36.3; O2SAT 94
[2018-01-29] MEDS: ONDANSETRON INJ 8 MG in DEXTROSE 5% 50ML 50 ML IV PRN (21:20)
[2018-01-29 23:35] VITALS: BP 106/61; PULSE 92; TEMP 36.7; O2SAT 95
[2018-01-30 03:40] VITALS: BP 101/61; PULSE 89; TEMP 36.3; O2SAT 90
[2018-01-30] MEDS: ONDANSETRON INJ 8 MG in DEXTROSE 5% 50ML 50 ML IV PRN (04:35)
[2018-01-30 06:59] VITALS: BP 97/62; PULSE 86; TEMP 36.7; O2SAT 91
--- NOTE | 2018-01-30 09:01 | Pain Management Progress Note ---
Pain Management Progress Note Date of Service January 30, 2018. Subjective Mrs. Guillen is a 72-year-old white female who is well-known to the pain service due to history of chronic intractable lower extremity neuropathic pain who was found to have catheter fracture and underwent revision of her intrathecal catheter yesterday on 01/29/2018. Patient experienced some nausea and vomiting yesterday afternoon and evening but is improved today and is eating her breakfast without complication. She is reporting some mild discomfort near the incisional site. She indicates that her typical chronic pain is currently adequately controlled with her infusion rate and desires no change. There was a 10% reduction yesterday programmed intraoperatively due to concern over her prior infusion likely being epidural versus intrathecal due to the fracture catheter. Patient indicates her pain is a 0-2/10. She has no further constitutional complaints. Plan of care discussed with Dr. Mily Victoria. Objective Vital Signs: Last Vital Signs Documentation Date Time Temp Pulse Resp B/P (MAP) Pulse Ox O2 Delivery O2 Flow Rate FiO2 01/30/18 08:48 Room Air 01/30/18 06:59 36.7 86 17 97/62 (74) 91 01/29/18 23:35 2.0 Physical Exam: General: Patient sitting up eating breakfast upon entering the room in no acute distress. Speech and thought process appropriate. Mood and affect appropriate. Cognition intact. Back/spine: Abdominal binder in place was removed for visual inspection. Dressing was removed for visual inspection of the incisional site. The incisional site is well approximated and nontender to palpation. There is no edema, erythema or discharge from the site. Prineo dressing intact. Neurologic : Cranial nerves grossly intact. Ambulation not witnessed. Laboratory Laboratory Findings 01/10/18 11:56 Red Blood Count 4.58, Mean Corpuscular Volume 93.2, Mean Corpuscular Hemoglobin 30.6, Mean Corpuscular Hemoglobin Concent 32.8, Mean Platelet Volume 10.7 H, Neutrophils (%) (Auto) 69.1, Lymphocytes (%) (Auto) 21.3, Monocytes (%) (Auto) 6.7, Eosinophils (%) (Auto) 2.1, Basophils (%) (Auto) 0.6, Neutrophils # (Auto) 3.61, Lymphocytes # (Auto) 1.11 L, Monocytes # (Auto) 0.35, Eosinophils # (Auto ) 0.11, Basophils # (Auto) 0.03 Assessment 1. Postoperative day 1 status post intrathecal catheter revision/replacement secondary to catheter fracture 2. Chronic intractable lower extremity neuropathic pain requiring implantation of intrathecal pump and catheter delivery system Recommendations 1. Appropriate use of the abdominal binder and daily dressing changes were again reviewed with the patient verbalized understanding. 2. No adjustments will be made to her intrathecal dose at this time 3. Patient may utilize Oxycodone/APAP for as needed breakthrough pain. Patient has an existing prescription at home and is not in need of prescription upon discharge. 4. We discussed activity limitations/modifications over the next 4-8 weeks and she verbalized understanding 5. Patient will return to the pain clinic next week on 02/05/2018 at 1050 for wound evaluation as well as on 02/12/2018 at 1045 for wound evaluation. 6. Patient will be discharged to home at this time.
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
--- NOTE | 2018-01-30 09:33 | Discharge Summary ---
Discharge Summary Date of Service January 30, 2018. Discharge Summary Admission Date: January 29, 2018 at 15:59 Discharge Date: January 30, 2018 Discharge Disposition: Home with services Primary Diagnosis: 1. Chronic intractable lower extremity neuropathic pain requiring implantation of intrathecal pump and catheter delivery system 2. History of fractured catheter Secondary Diagnoses/Problems: Medical Problems: (1) Abdominal pain Status: Acute Procedures: Intrathecal catheter revision/replacement Discharge Instructions Last Recorded Wt (Kilograms): 49.000 Activity Recommendations: lifting limitation, exercise/sex/sports limit, shower /bathe limit (No shower or bath 3 days) Return to School/Work: limitations Diet At Discharge: Regular Allergies: Coded Allergies: Adhesives (Verified Allergy, Intermediate, BLISTERS, 01/10/18) Sulfamethoxazole w/Trimethoprim (Unverified Allergy, Unknown, per records , 01/10/18) Discharge Medications: Ventolin HFA inhaler 2 puffs every 6 hours as needed Oxycodone/acetaminophen 5/325 1-2 tablets daily Home Health Services: nursing Special Care: Call your doctor if: * Temperature above 101 degrees * Pain not relieved by pain medicine ordered * There is increased drainage or redness from any incision * You have any unanswered questions or concerns. Avoid all tobacco products. If you need help to stop smoking, call [place]'s FREE QUITLINE at . This is a free call. Hospital Course (1) Chronic pain (2) Back pain Patient was admitted due to discovery of intrathecal catheter fracture. Patient has ongoing chronic use of intrathecal morphine and clonidine due to chronic intractable lower extremity neuropathic pain. The patient underwent catheter revision/replacement on 01/29/2018 with midline incision in the thoracolumbar junction. Patient experienced some nausea/vomiting yesterday afternoon and evening which has resolved at the time of today's visit. She is indicating adequate pain control at this time and is in no need of adjustment of intrathecal pump. Patient will be discharged home with follow-up in the pain clinic in 1 week and 2 weeks. Total time spent on discharge =45 minutes This includes examination of the patient, discharge planning, medication reconciliation, and communication with other providers. Problem Qualifiers (1) Chronic pain: Chronic pain type: chronic pain syndrome Qualified Codes: G89.4 - Chronic pain syndrome (2) Back pain: Back pain location: low back pain Chronicity: chronic Sciatica presence: with sciatica Sciatica laterality: bilateral sciatica
[2018-01-30 09:36] VITALS: BP 97/62; PULSE 86; TEMP 36.7; O2SAT 91
== END 2018-01-30 11:29 | disposition home or self-care (01) ==
LOC: C.ACU 10:49 → C.2T 15:59 → ENRESERV 16:55
PROVIDERS: ADMIT Anesthesiology; ATTEND Anesthesiology
DX: T85.620A Displacement of cranial or spinal infusion catheter, initial encounter (principal); G57.83 Other specified mononeuropathies of bilateral lower limbs; G89.29 Other chronic pain; E78.5 Hyperlipidemia, unspecified; M19.90 Unspecified osteoarthritis, unspecified site; F17.200 Nicotine dependence, unspecified, uncomplicated; J44.9 Chronic obstructive pulmonary disease, unspecified; F32.9 Major depressive disorder, single episode, unspecified; Z85.54 Personal history of malignant neoplasm of ureter; Z88.1 Allergy status to other antibiotic agents; Z88.2 Allergy status to sulfonamides; Y75.2 Prosthetic and other implants, materials and neurological devices associated with adverse incidents